=== PATIENT | female | born 1960 | race Caucasian/White ===

== ENCOUNTER 2016-04-28 06:34 | Day surgery (SDC) | payer OTHER, BC ==
[2016-04-26 17:36] VITALS: BMI 23.4
[2016-04-28 07:01] VITALS: TEMP 97.6
[2016-04-28] MEDS ORDERED: DEXAMETHASONE SOD PHOSPHATE/PF 10 MG/ML SDV ONE (07:08)
[2016-04-28] MEDS ORDERED: BETAMET ACET/BETAMET NA PH 30 MG/5 ML VIAL ONE (07:08)
[2016-04-28] MEDS ORDERED: BUPIVACAINE HCL/PF 0.25% (2.5MG/ML) 10 ML VIAL ONE (07:08)
[2016-04-28] MEDS ORDERED: BUPIVACAINE HCL/PF 0.75% 10 ML VIAL ONE (07:08)
[2016-04-28] MEDS ORDERED: LIDOCAINE HCL 1%, 10 MG/ML (20ML VIAL) ONE (07:08)
[2016-04-28] MEDS ORDERED: PROPOFOL 20 ML ONE (07:56)
[2016-04-28] MEDS ORDERED: LIDOCAINE HCL/PF 2% SDV 5ML VIAL ONE (07:56)
[2016-04-28] MEDS ORDERED: LIDOCAINE HCL 1%, 10 MG/ML (20ML VIAL) IJ ONE (08:23)
[2016-04-28] MEDS ORDERED: IOHEXOL 180 MG/1 ML ML IJ ONE (08:24)
[2016-04-28] MEDS ORDERED: DEXAMETHASONE SOD PHOSPHATE 10 MG/1 ML VIAL IM ONE (08:25)
[2016-04-28] MEDS ORDERED: methylPREDNISolone ACET (DEPO) 80 MG/1 ML VIAL IM ONE (08:25)
--- NOTE | 2016-04-28 08:32 | HP ---
Admitting History and Physical - Admission Chief Complaint: 1. Low back pain. 2. Left leg pain - Smoking History Smoking history: Never smoked - Alcohol/Substance Use Hx Alcohol Use: No Home Medications - Allergies Allergies/Adverse Reactions: Allergies Allergy/AdvReac Type Severity Reaction Status Date / Time No Known Allergies Allergy Verified 04/28/16 06:58 - Home Medications Home Medications: Ambulatory Orders Naproxen [Naprosyn -] 500 mg PO HS 04/26/16 Physical Examination Vital Signs: Vital Signs Temperature 97.6 F 04/28/16 07:00 Pulse Rate 65 04/28/16 07:00 Respiratory Rate 18 04/28/16 07:00 Blood Pressure 108/64 04/28/16 07:00 O2 Sat by Pulse Oximetry (%) 100 04/28/16 07:00 Assessment/Plan A: 1. Lumbar DDD 2. Lumbar Radiculopathy 3. Low back pain P: 1. Left L4, L5 Transforaminal epidural steroid injection.
[2016-04-28 10:28] VITALS: BP 135/85; PULSE 70
--- NOTE | 2016-05-08 15:39 | PROC ---
Procedure Note Procedure: Procedure Date: 04/28/16 Pre-operative Diagnosis : Lumbar spondylosis, Lumbar DDD, Lumbar Radiculopathy Post operative Diagnosis: same Procedure: Left L4, L5 Transforaminal epidural steroid injections under fluoroscopy Anesthesia: MAC EBL: 0cc After obtaining informed consent regarding risks, benefits and alternatives of the procedure from the patient, the procedure was commenced. Patient placed prone, skin cleaned with Betadine, soft tissue anesthetized with 1% lidocaine. 22 gauge spinal needles were advanced towards the 6o clock position of the pedicle(s) of the above mentioned level(s) using oblique approach and intermittent fluoroscopy. AP and lateral visualization was used to ensure proper needle placement. Contrast was injected and good selective epidurogram(s ) ~noted. Solution containing 1cc of Dexamethasone (10mg/ml) and 3cc of 0.25% Marcaine was injected at each level. [place] were withdrawn. Patient tolerated the procedure well and was discharged home.
== END 2016-04-28 10:36 | disposition home or self-care (01) ==
LOC: JASU-SURG 06:34
PROVIDERS: ATTEND Physical Medicine & Rehabilitation
PROC: 3E0R33Z Introduction of Anti-inflammatory into Spinal Canal, Percutaneous Approach (ICD-10-PCS; 2016-04-28)
PROC: 3E0R3BZ Introduction of Anesthetic Agent into Spinal Canal, Percutaneous Approach (ICD-10-PCS; principal; 2016-04-28 08:00)
DX: M43.06 Spondylolysis, lumbar region (principal); M51.16 Intervertebral disc disorders with radiculopathy, lumbar region
CPT/HCPCS: 76000-TC

== ENCOUNTER 2024-10-16 10:17 | Emergency (ER) | payer OTHER, BC ==
[2024-10-16 10:27] VITALS: BMI 23.4
[2024-10-16 11:19] LABS: ABSOLUTE IMMATURE GRANULOCYTES 0.05 x10^3/uL (0.0-0.031); BASOPHILS # 0.05 x10^3/uL (0.01-0.08); EOSINOPHIL % 0.5 % (0.7-5.8); EOSINOPHILS # 0.05 x10^3/uL (0.04-0.36); MCHC 32.7 g/dl (32.2-35.5); MEAN CELL VOLUME 90.9 fl (79.4-94.8); MEAN PLT VOLUME 9.4 fl (9.4-12.3); MONOCYTE # 0.83 x10^3/uL (0.24-0.86); MONOCYTE % 7.7 % (4.7-12.5); RDW 15.3 % (12.4-16.4)
[2024-10-16 11:22] LABS: INR 0.92 (0.83-1.09); PROTHROMBIN TIME (PATIENT) 10.1 SEC (9.7-13.0)
[2024-10-16 11:24] LABS: ACTIVATED PTT 24.9 SECONDS (25.2-36.5)
[2024-10-16 11:41] LABS: GLUCOSE,RANDOM 103 mg/dL (74-106)
[2024-10-16 11:44] LABS: CO2 27 mmol/L (21-32); CREATININE 0.5 mg/dL (0.55-1.3)
[2024-10-16 11:45] LABS: TOT PROT 7.4 g/dl (6.4-8.2)
[2024-10-16 11:46] LABS: LDL CHOLESTEROL (ONLY SJRH) 190 mg/dL (5-100)
[2024-10-16 11:47] LABS: SGOT/AST 19 U/L (15-37); SGPT/ALT 25 U/L (13-61)
[2024-10-16 11:48] LABS: ALK PHOS 66 U/L (45-117)
[2024-10-16] MEDS ORDERED: ACETAMINOPHEN INJECTION 100 ML ONE (11:50)
[2024-10-16] MEDS: SODIUM CHLORIDE 0.9% 500 ML INFUS.BAG IV ONE (12:05)
[2024-10-16] MEDS: ACETAMINOPHEN 1000 MG/100 ML BAG IVPB ONE (12:05)
[2024-10-16 12:16] LABS: URINE APPEARANCE CLEAR; URINE BILIRUBIN NEGATIVE (NEGATIVE); URINE COLOR YELLOW; URINE GLUCOSE (UA) NEGATIVE (NEGATIVE); URINE KETONE NEGATIVE (NEGATIVE); URINE LEUK ESTERASE NEGATIVE (NEGATIVE); URINE NITRITE NEGATIVE (NEGATIVE); URINE PROTEIN NEGATIVE (NEGATIVE); URINE UROBILINOGEN 0.2 mg/dL (0.2-1.0)
[2024-10-16] MEDS ORDERED: CEFTRIAXONE 1 GM/50 ML BAG ONE (12:22)
[2024-10-16 13:14] LABS: HIV INTERPRETATION NEGATIVE (NEGATIVE)
[2024-10-16 13:15] LABS: HCV DIAGNOSTIC IN-HOUSE W/RFLX NON-REACTIVE (NONREACTIVE)
[2024-10-16 14:07] VITALS: RESP 18
[2024-10-16] MEDS ORDERED: METOCLOPRAMIDE HCL INJECTION 10 MG/2 ML VIAL ONE (14:15)
[2024-10-16] MEDS: METOCLOPRAMIDE HCL INJECTION 10 MG/2 ML VIAL IVPB ONE (14:23)
[2024-10-16 17:25] VITALS: BP 158/82; PULSE 85; TEMP 98
== END 2024-10-16 17:45 | disposition short-term general hospital (02) ==
LOC: JER 10:17
PROC: 3E033NZ Introduction of Analgesics, Hypnotics, Sedatives into Peripheral Vein, Percutaneous Approach (ICD-10-PCS; principal; 2024-10-16)
PROC: 3E033GC Introduction of Other Therapeutic Substance into Peripheral Vein, Percutaneous Approach (ICD-10-PCS; 2024-10-16)
PROC: 3E033GC Introduction of Other Therapeutic Substance into Peripheral Vein, Percutaneous Approach (ICD-10-PCS; 2024-10-16)
PROC: 3E033GC Introduction of Other Therapeutic Substance into Peripheral Vein, Percutaneous Approach (ICD-10-PCS; 2024-10-16)
DX: I72.9 Aneurysm of unspecified site (principal); R29.898 Other symptoms and signs involving the musculoskeletal system; R51.9 Headache, unspecified; R11.0 Nausea
CPT/HCPCS: 36415; 70450-TC; 70496-TC; 70498-TC; 70544-TC; 80053; 80061; 81003; 82550; 82962; 83036; 84484; 85025; 85610; 85730; 86803; 86850; 86900; 86901; 87389; 93005; 93010; 99291